=== PATIENT | male | born 1975 | race Caucasian/White ===

== ENCOUNTER 2020-02-02 12:23 | Emergency (ER) | payer OTHER ==
[~2020-02-02] VITALS: Ht 182.9 cm; Wt 76.2 kg
[2020-02-02] MEDS ORDERED: MUPIROCIN15 GM TOP (14:10)
[2020-02-02] MEDS ORDERED: SALINE SOLUTIO360 ML (14:19)
== END 2020-02-02 14:24 | disposition home or self-care (01) ==
LOC: ER 12:23 → EDBD 13:13 → ER 14:24
DX: S00.01XA Abrasion of scalp, initial encounter (principal); W22.8XXA Striking against or struck by other objects, initial encounter; Y93.89 Activity, other specified; Y92.89 Other specified places as the place of occurrence of the external cause; Y99.8 Other external cause status

== ENCOUNTER 2020-11-08 10:40 | Emergency (ER) | payer OTHER ==
[~2020-11-08] VITALS: Ht 170.2 cm; Wt 74.8 kg
[~2020-11-08 10:40] MED LIST: MUPIROCIN15 GM TOP; SALINE SOLUTIO360 ML
[2020-11-08] MEDS ORDERED: NORFLEX100MG PO (18:24)
== END 2020-11-08 18:31 | disposition home or self-care (01) ==
LOC: ER 10:40
DX: R10.31 Right lower quadrant pain (principal); M54.5 Low back pain